=== PATIENT | female | born 1980 | race Hispanic/Latino ===

== ENCOUNTER 2024-08-06 20:54 | Emergency (ER) | payer OTHER ==
[~2024-08-06] VITALS: Ht 162.6 cm; Wt 77.1 kg
[2024-08-06 22:40] VITALS: PULSE 96; RESP 20; TEMP 100
[2024-08-06 22:59] LABS: STREPTOCOCCUS GRP A ANTIGEN NEGATIVE (NEGATIVE)
[2024-08-06 23:11] LABS: INFLUENZAE A&B ANTIGEN (RAPID) NEGATIVE (NEGATIVE); RESPIRATORY SYNC. VIRUS NEGATIVE (NEGATIVE)
[2024-08-06] MEDS: ACETAMINOPHEN 325 MG TAB PO ONE (23:21)
[2024-08-07] MEDS ORDERED: AZITHROMYCIN250 MG PO (00:21)
[2024-08-07 01:40] VITALS: BP 128/76; PULSE 87; RESP 19; TEMP 99.3; O2SAT 99
== END 2024-08-07 00:30 | disposition home or self-care (01) ==
LOC: ER 22:11
DX: R50.9 Fever, unspecified (principal); J03.90 Acute tonsillitis, unspecified; R51.9 Headache, unspecified; E03.9 Hypothyroidism, unspecified; Z11.52 Encounter for screening for COVID-19
CPT/HCPCS: 71045; 83518; 87070; 87400; 87420; 99283; U0002